=== PATIENT | male | born 1955 | race Caucasian/White ===

== ENCOUNTER 2019-10-19 11:10 | Inpatient (IN) | payer OTHER ==
[~2019-10-19] VITALS: Ht 177.8 cm; Wt 61.2 kg
[2019-10-19 11:21] VITALS: BP 141/93
--- NOTE | 2019-10-19 11:26 | NUR ---
WAIT AT LOBBY.
--- NOTE | 2019-10-19 12:40 | NUR ---
TO ED 11 WITH STEADY GAIT.
[2019-10-19] MEDS ORDERED: NACL 0.9% 1,000 ML IV ONE (12:47)
[2019-10-19] MEDS ORDERED: MORPHINE SULFATE 4 MG/ML SYR IVP ONE (12:50)
[2019-10-19] MEDS ORDERED: ONDANSETRON 4 MG/2 ML VIAL IVP ONE (12:50)
--- NOTE | 2019-10-19 12:55 | NUR ---
64/M TO ED WITH FOREIGN BODY TO RECTUM FOR 24 HRS. PT REPORTS HIS PLACED A CAN INTO RECTUM YESTERDAY. UNABLE TO HAVE BM, ABLE TO SIT BUT WITH PAIN. IN BED FOR MSE.
[2019-10-19] MEDS ORDERED: PITA4TAB PO (13:28)
[2019-10-19] MEDS ORDERED: [UNRECOGNIZED DRUG - CODE] PO (13:28)
--- NOTE | 2019-10-19 13:29 | NUR ---
PT LEFT TO CT
[2019-10-19 14:06] LABS: BASOPHILS # (AUTO) 0.1 K/uL (0.00-0.22); EOSINOPHILS # (AUTO) 0.1 K/uL (0-0.4); EOSINOPHILS % (AUTO) 2.2 % (0.0-4.0); HEMATOCRIT 44.1 % (36-52); HEMOGLOBIN 14.5 g/dL (12.0-18.0); LYMPHOCYTES # (AUTO) 1.4 K/uL (2.0-11.5); LYMPHOCYTES % (AUTO) 23.8 % (20.5-51.1); MEAN CORPUSCULAR HEMOGLOBIN 30 pg (27-31); MEAN CORPUSCULAR HGB CONC 33 g/dL (33-37); MONOCYTES # (AUTO) 0.6 K/uL (0.8-1.0); MONOCYTES % (AUTO) 9.7 % (1.7-9.3); NEUTROPHILS # (AUTO) 3.6 K/uL (1.8-7.7); NEUTROPHILS % (AUTO) 63.3 % (42.2-75.2); PLATELET COUNT (AUTO) 202 K/uL (140-450); RED CELL DISTRIBUTION WIDTH 14.2 % (11.6-13.7); WHITE BLOOD COUNT (AUTO) 5.8 K/uL (4.8-10.8)
--- NOTE | 2019-10-19 14:30 | NUR ---
PT ASLEEP IN BED, AROUSABLE TO VERBAL STIMULI.
[2019-10-19 14:37] LABS: PROTHROMBIN TIME 9.9 secs (10.8-13.4)
[2019-10-19 15:18] LABS: APPEARANCE,URINE CLEAR (CLEAR); BILIRUBIN,URINE 2+ (NEGATIVE); BLOOD, URINE NEGATIVE (NEGATIVE); COLOR,URINE YELLOW (YELLOW); LEUKOCYTE ESTERASE ,URINE 1+ (NEGATIVE); NITRITE, URINE NEGATIVE (NEGATIVE); UGLUCOSE NEGATIVE (NEGATIVE)
[2019-10-19 15:36] LABS: ANION GAP 16.9 (8-16); CARBON DIOXIDE 26.2 mmol/L (21-32); POTASSIUM 3.1 mmol/L (3.5-5.1)
[2019-10-19 15:37] LABS: CREATININE 1.1 mg/dL (0.7-1.3); TOTAL BILIRUBIN 26.2 mg/dL (0.0-1.0)
--- NOTE | 2019-10-19 15:40 | NUR ---
PT IS RESTING IN BED, USING PHONE AT THIS TIME.
[2019-10-19] MEDS ORDERED: NACL 0.9% 1,000 ML IV SCH (15:41)
[2019-10-19] MEDS ORDERED: MORPHINE SULFATE 2 MG/ML SYR IVP PRN (15:45)
[2019-10-19] MEDS ORDERED: ACETAMINOPHEN 325 MG TAB PO PRN (15:45)
[2019-10-19] MEDS ORDERED: HYDROcodone/APAP 5/325 MG 1 TAB TAB PO PRN (15:45)
[2019-10-19] MEDS ORDERED: ONDANSETRON 4 MG/2 ML VIAL IM/IVP PRN (15:45)
[2019-10-19] MEDS ORDERED: LORazepam 2 MG/ML VIAL IM/IVP PRN (15:45)
[2019-10-19] MEDS ORDERED: DOCUSATE SODIUM 100 MG GELCAP PO PRN (15:45)
[2019-10-19 15:50] LABS: CALCIUM OXALATE CRYSTALS,UR 0-10 /HPF (None Seen); RBC,URINE 0 /HPF (0-5)
[2019-10-19 16:30] VITALS: BP 138/89
--- NOTE | 2019-10-19 16:30 | NUR ---
Patient will be admitted to care of DR. LESTER. Admited to [facility]. Will go to room 112A AFTER SURGERY. Belongings list completed. PT WAS TAKEN TO OR WITH NURSING STAFF AT THIS TIME.
--- NOTE | 2019-10-19 16:45 | NUR ---
RECEIVED REPORT FROM ER NURSE. PT CAME TO UNIT VIA GURNEY. PT VERBALIZED THAT HE WANTS TO GO HOME NOW. INFORMED DR DOBSON. DR DOBSON THE PATIENT ABOUT THE RISKS OF GOING HOME NOW. PT NEEDS TO BE OBSERVED FOR ANY BLEEDING FROM PERFORATION IF ANY. PT WAS ADAMANT THAT HE WANTS TO GO HOME. AMA SIGNED BY PATIENT. NOTIFIED DR DOBSON.
[2019-10-19] MEDS ORDERED: SEVOFLURANE 250 ML BTL INH ONE (16:46)
[2019-10-19] MEDS ORDERED: DEXAMETHASONE 4 MG/ML VIAL ONE (16:46)
[2019-10-19] MEDS ORDERED: ONDANSETRON 4 MG/2 ML VIAL ONE (16:46)
[2019-10-19] MEDS ORDERED: PROPOFOL 200 MG/20 ML VIAL IV ONE (16:46)
[2019-10-19] MEDS ORDERED: fentaNYL 0.05 MG/ML VIAL ONE (16:48)
--- NOTE | 2019-10-19 18:20 | NUR ---
PT WENT HOME AGAINST MEDICAL ADVICE. PT REFUSED ALL INITIAL ADMISSION ASSESSMENT. IV LINE REMOVED, CATHETER INTACT. ID BAND REMOVED PT WALKED WITH A STEADY GAIT AT DISCHARGE. DR RIVERA NOTIFIED. AMSterling SIGNED. INFORMED PATIENT OF RISKS OF GOING AMA.
[2019-10-19 18:22] LABS: BARBITURATE, URINE NEG. ng/ml (NEG <=200); BENZODIAZEPINE, URINE NEG. ng/mL (NEG <=200); CANNABINOID, URINE NEG. ng/mL (NEG <=50); COCAINE, URINE NEG. ng/mL (NEG <=300); OPIATE, URINE NEG. ng/mL (NEG <=2000); PHENCYCLIDINE SCREEN,URINE NEG. ng/mL (NEG <=25)
[2019-10-19 18:22] LABS: CHOL/HDL RATIO 3.3 (1-4.5); FREE T4 (FREE THYROXINE) 1.18 ng/dL (0.76-1.46); MAGNESIUM 2.5 mg/dL (1.8-2.4); PHOSPHORUS 3.4 mg/dL (2.5-4.9); THYROID STIMULATING HORMONE 1.96 uIU/mL (0.34-3.74)
[2019-10-19] MEDS ORDERED: ZOLPIDEM 10 MG TAB PO SCH (21:00)
[2019-10-19] MEDS ORDERED: ZOLPIDEM 5 MG TAB PO PRN (21:00)
== END 2019-10-19 17:20 | disposition left against medical advice (07) | DRG 345 ==
LOC: MED 11:10 → MTU 15:41
PROVIDERS: ADMIT General Practice; ATTEND General Practice
PROC: 0DC Gastrointestinal System, Extirpation (ICD-10-PCS; principal; 2019-10-19 16:00)
DX: T18.5XXA Foreign body in anus and rectum, initial encounter (principal); N39.0 Urinary tract infection, site not specified; G47.00 Insomnia, unspecified; E87.6 Hypokalemia; E80.6 Other disorders of bilirubin metabolism; Z53.29 Procedure and treatment not carried out because of patient's decision for other reasons; X58.XXXA Exposure to other specified factors, initial encounter; Y93.89 Activity, other specified; Y92.89 Other specified places as the place of occurrence of the external cause; Y99.8 Other external cause status
CPT/HCPCS: 36415; 80053; 80305; 81001; 82150; 83036; 83690; 83735; 83880; 84100; 84439; 84443; 84484; 85025; 85610; 86886; 86900; 86901; 87086; 93005; 96361; 96374; 96375; 99285; J1100; J2270; J2405; J2704; J3010; J7030